=== PATIENT | male | born 1980 ===

== ENCOUNTER 2020-04-07 14:59 | Emergency (ER) | payer BC ==
[2020-04-07] MEDS ORDERED: Diphtheria,Pertussis(Acell),Tetanus Vaccine 0.5 ML Syringe IM ONE (15:27)
[2020-04-07] MEDS ORDERED: Bacitracin Oint 1 GM U/D Packet TOP ONE (15:42)
--- NOTE | 2020-04-07 15:46 | EDM.PDOC ---
ED HPI GENERAL MEDICAL PROBLEM - General Chief Complaint: Laceration Stated Complaint: INJURY HIS FINGER Time Seen by Provider: 04/07/20 15:01 Source of Information: Reports: Patient History Limitations: Reports: No Limitations - History of Present Illness INITIAL COMMENTS - FREE TEXT/NARRATIVE: HISTORY AND PHYSICAL: History of present illness: Patient is a 39-year-old male who presents to the ED today with concern of right pinky finger laceration and forearm abrasions that occurred just prior to arrival to the ED. Patient states he is not up-to-date on his tetanus and would like to update this today. Patient states he was using a dermal tool when he missed and hit a piece of metal that shot up in the air, cut his pinky finger, and slid across his forearm. Patient states he is concerned because there could be metal in his hand but did not see any. Patient states he has been able to fully move his hand without any deficits. Denies any other symptoms or concerns. Patient denies fever, chills, chest pain, shortness of breath, or cough. Denies headache, neck stiff ness, change in vision, syncope, or near syncope. Denies nausea, vomiting, abdominal pain, diarrhea, constipation, or dysuria. Has not noted any blood in urine or stool. Patient has been eating and drinking appropriately. Review of systems: As per history of present illness and below otherwise all systems reviewed and negative. Past medical history: As per history of present illness and as reviewed below otherwise noncontributory. Surgical history: As per history of present illness and as reviewed below otherwise noncontributory. Social history: See social history for further information Family history: As per history of present illness and as reviewed below otherwise noncontrib utory. Physical exam: General: Patient is alert, oriented, and in no acute distress. Patient sitting comfortably on exam table. HEENT: Atraumatic, normocephalic, pupils equal and reactive bilaterally, negative for conjunctival pallor or scleral icterus, mucous membranes moist, TMs normal bilaterally, throat clear, neck supple, nontender, trachea midline. No drooling or trismus noted. No meningeal signs. No hot potato voice noted. Lungs: Clear to auscultation, breath sounds equal bilaterally, chest nontender. Heart: S1S2, regular rate and rhythm without overt murmur Abdomen: Soft, nondistended, nontender. Negative for masses or hepatosplenomegaly. Negative for costovertebral tenderness. Pelvis: Stable nontender. Genitourinary: Deferred. Rectal: Deferred. Skin: Intact, warm, dry. No lesions or rashes noted. Extremities: There is a 1cm laceration of the distal 5th digit palmar aspect without bleeding. Full ROM of this digit without deficit. There are also multiple superficial abrasions of the anterior right forearm without bleeding. He has full range of motion of the complete right upper extremity without deficit. Radial pulses grossly intact of the right upper extremity with capi llary refill less than 2 seconds. Otherwise, atraumatic, negative for cords or calf pain. Neurovascular unremarkable. Neuro: Awake, alert, oriented. Cranial nerves II through XII unremarkable. Cerebellum unremarkable. Motor and sensory unremarkable throughout. Exam nonfocal. Notes: Bacitracin and sterile dressing applied to superficial abrasions by nursing staff. Signs and symptoms that require return to the ED thoroughly discussed with patient. Discussed importance for follow-up with a primary care provider. Voices understanding and is agreeable to plan of care. Denies any further questions or concerns at this time. Diagnostics: Hand and forearm XR Therapeutics: Tdap, Sutures, Lidocaine, Bacitracin Prescription: None Impression: Finger laceration, fifth, right Superficial abrasions, right forearm Plan: 1. Keep the area clean and dry. Continue to monitor for signs of infection as discussed. Sutures to be removed in 7-10 days. 2. Tylenol and/or ibuprofen as directed and as needed for pain management and discomfort. 3. Please follow-up with your primary care provider as discussed. Return to the ED as needed and as discussed. Definitive disposition and diagnosis as appropriate pending reevaluation and review of above. - Related Data Allergies Allergy/AdvReac Type Severity Reaction Status Date / Time latex Allergy Rash Verified 04/07/20 15:21 Home Meds: Home Meds Lisdexamfetamine Dimesylate [Vyvanse] 50 mg PO DAILY 04/07/20 [History] Past Medical History - Past Health History Medical/Surgical History: Denies Medical/Surgical History HEENT History: Reports: Impaired Vision Psychiatric History: Reports: ADHD - Infectious Disease History Infectious Disease History: Reports: Chicken Pox Social & Family History - Family History Family Medical History: Noncontributory - Tobacco Use Tobacco Use Status *Q: Never Tobacco User Second Hand Smoke Exposure: No - Caffeine Use Caffeine Use: Reports: Coffee, Tea - Recreational Drug Use Recreational Drug Use: No ED ROS GENERAL - Review of Systems Review Of Systems: Comprehensive ROS is negative, except as noted in HPI. ED EXAM, SKIN/RASH Exam: See Below (see dictation) ED SKIN PROCEDURES - Laceration/Wound Repair Right Distal Digit - 5th (Baby) Appearance: Subcutaneous, Linear, Clean Distal NVT: Neuro & Vascular Intact, No Tendon Injury Local Anesthesia - Lidocaine (Xylocaine): 1% Plain Local Anesthetic Volume: 5cc Skin Prep: Chlorhexidine (Hibiciens), Providone-Iodine (Betadine), Saline Saline Irrigation (cc's): 250 Exploration/Debridement/Repair: Wound Explored, In a Bloodless Field, Explored to Base, No Foreign Material Found Closed with: Sutures Lac/Wound length In cm: 1 Suture Size: 4-0 # of Sutures: 2 Suture Type: Silk, Interrupted Drain Placement: No Sterile Dressing Applied: Nurse Tetanus Status Addressed: Yes Complications: No Course - Vital Signs Last Recorded V/S: Last Vital Signs Temp 96.9 F 04/07/20 15:06 Pulse 69 04/07/20 15:06 Resp 16 04/07/20 15:06 BP 127/82 04/07/20 15:06 Pulse Ox 98 04/07/20 15:06 - Orders/Labs/Meds Orders: Active Orders 24 hr Category Date Time Status Vaccines to be Administered [RC] PER UNIT ROUTINE Care 04/07/20 15:27 Active Meds: Medications Discontinued Medications Generic Name Dose Route Start Last Admin Trade Name Michael PRN Reason Stop Dose Admin Bacitracin 1 dose 04/07/20 15:42 04/07/20 15:59 Bacitracin Oint 1 Gm TOP 04/07/20 15:43 1 dose ONETIME ONE Administration Diphtheria/Tetanus/Acell Pertussis 0.5 ml 04/07/20 15:27 04/07/20 15:41 Adacel IM 04/07/20 15:28 0.5 ml .ONCE ONE Administration Lidocaine HCl 5 ml 04/07/20 15:28 04/07/20 15:41 Xylocaine-Mpf 1% INJECT 04/07/20 15:29 5 ml ONETIME ONE Administration Departure - Departure Time of Disposition: 16:22 Disposition: Home, Self-Care 01 Clinical Impression: Superficial abrasion Finger laceration Qualifiers: Encounter type: initial encounter Finger: little finger Damage to nail status: without damage Foreign body presence: without foreign body Laterality: right Qualified Code(s): S61.216A - Laceration without foreign body of right little finger without damage to nail, initial encounter - Discharge Information Referrals: PCP,None [Primary Care Provider] - Forms: ED Department Discharge Additional Instructions: The following information is given to patients seen in the emergency department who are being discharged to home. This information is to outline your options for follow-up care. We provide all patients seen in our emergency department with a follow-up referral. The need for follow-up, as well as the timing and circumstances, are variable depending upon the specifics of your emergency department visit. If you don't have a primary care physician on staff, we will provide you with a referral. We always advise you to contact your personal physician following an emergency department visit to inform them of the circumstance of the visit and for follow-up with them and/or the need for any referrals to a consulting specialist. The emergency department will also refer you to a specialist when appropriate. This referral assures that you have the opportunity for follow-up care with a specialist. All of these measure are taken in an effort to provide you with optimal care, which includes your follow-up. Under all circumstances we always encourage you to contact your private physician who remains a resource for coordinating your care. When calling for follow-up care, please make the office aware that this follow-up is from your recent emergency room visit. If for any reason you are refused follow-up, please contact the [facility] Emergency Department at and asked to speak to the emergency department charge nurse. [facility] [address] [place] [id number] [address] [id number] 1. Keep the area clean and dry. Continue to monitor for signs of infection as discussed. Sutures to be removed in 7-10 days. 2. Tylenol and/or ibuprofen as directed and as needed for pain management and discomfort. 3. Please follow-up with your primary care provider as discussed. Return to the ED as needed and as discussed. Sepsis Event Note (ED) - Evaluation Sepsis Screening Result: No Definite Risk - Focused Exam Vital Signs: Vital Signs Temp Pulse Resp BP Pulse Ox 04/07/20 15:06 96.9 F 69 16 127/82 98 - My Orders Last 24 Hours: My Active Orders 04/07/20 15:27 Vaccines to be Administered [RC] PER UNIT ROUTINE - Assessment/Plan Last 24 Hours: My Active Orders 04/07/20 15:27 Vaccines to be Administered [RC] PER UNIT ROUTINE
--- NOTE | 2020-04-07 16:05 | CR ---
INDICATION: Laceration. Rule out foreign body. TECHNIQUE: Three views of the right hand. COMPARISON: Today`s right forearm x-rays. FINDINGS : No soft tissue air or foreign body. No fracture or subluxation. 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 IMPRESSION: 1. No foreign body or soft tissue air evident. 2. No acute bony abnormality. 3. 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 Dictated by Steve Romero MD @ Apr 07 2020 4:01PM Signed by Dr. Steve Romero @ Apr 07 2020 4:04PM
--- NOTE | 2020-04-07 16:08 | CR ---
INDICATION: Laceration. Rule out foreign body. TECHNIQUE: Two views of the right forearm. COMPARISON: Today`s right hand x-rays. FINDINGS: No foreign body or soft tissue air. No fracture or other bony abnormality. IMPRESSION: Negative right forearm. Dictated by Steve Romero MD @ Apr 07 2020 4:04PM Signed by Dr. Steve Romero @ Apr 07 2020 4:06PM
[2020-04-07 16:49] VITALS: BP 127/75; PULSE 76
== END 2020-04-07 16:46 | disposition home or self-care (01) ==
LOC: MW.ED 14:59
DX: S61.216A Laceration without foreign body of right little finger without damage to nail, initial encounter (principal); S50.811A Abrasion of right forearm, initial encounter; Z23 Encounter for immunization; F90.9 Attention-deficit hyperactivity disorder, unspecified type; Z79.899 Other long term (current) drug therapy; Z91.040 Latex allergy status; W26.8XXA Contact with other sharp object(s), not elsewhere classified, initial encounter
CPT/HCPCS: 12001; 73090; 73130; 90471; 90715; 99283; J2001; 99282